=== PATIENT | female | born 1990 | race African-American/Black ===

== ENCOUNTER 2018-04-09 22:50 | Emergency (ER) | payer BC ==
[~2018-04-09] VITALS: Ht 165.1 cm; Wt 73.9 kg
[2018-04-09 22:58] VITALS: BP 97/58
[2018-04-10 00:19] LABS: BASOPHILS % (AUTO) 0.6 % (0.0-2.0); HEMATOCRIT 31.5 % (37.0-47.0); HEMOGLOBIN 9.6 G/DL (12.0-16.0); MEAN CORPUSCULAR VOLUME 68 FL (80-99); MONOCYTES % (AUTO) 3.9 % (1.0-10.0); NEUTROPHILS % (AUTO) 76.5 % (45.0-75.0); PLATELET COUNT 398 K/UL (150-450); RED BLOOD COUNT 4.61 M/UL (4.20-5.40); RED CELL DISTRIBUTION WIDTH 17.8 % (11.6-14.8)
[2018-04-10 00:35] LABS: ANION GAP 9 mmol/L (5-15); BLOOD UREA NITROGEN 8 mg/dL (7-18); CALCIUM 8.5 MG/DL (8.5-10.1); CARBON DIOXIDE 21 MMOL/L (21-32); CHLORIDE 104 MMOL/L (98-107); CREATININE 0.7 MG/DL (0.55-1.30); POTASSIUM 3.8 MMOL/L (3.5-5.1); SODIUM 134 MMOL/L (136-145)
[2018-04-10 00:39] LABS: ALANINE AMINOTRANSFERASE 20 U/L (12-78); ALBUMIN 3.2 G/DL (3.4-5.0); ALBUMIN/GLOBULIN RATIO 0.6 (1.0-2.7); ALKALINE PHOSPHATASE 80 U/L (46-116); ASPARTATE AMINO TRANSFERASE 13 U/L (15-37); BILIRUBIN,TOTAL 0.3 MG/DL (0.2-1.0)
--- NOTE | 2018-04-10 00:39 | Emergency Room Report ---
History of Present Illness General Chief Complaint: Abdominal Pain Source: Patient, EMS Present Illness HPI 27-year-old female presents ED for evaluation of abdominal pain. Patient brought in by EMS. States the pain started around 7 PM tonight. Epigastric, sharp, 8 out of 10, nonradiating. Notes multiple episodes of nausea and vomiting. States she is approximately 3 months . Denies any vaginal bleeding or discharge. States that there've been no palpitations with this . States that she has one prior which was uncomplicated. Denies chest pain or shortness of breath. Denies fevers chills. No other aggravating relieving factors. Denies any other associated symptoms Allergies: Coded Allergies: No Known Allergies (Unverified , 04/09/18) Patient History Past Medical History: none Past Surgical History: none Pertinent Family History: none Social History: Denies: smoking, alcohol use, drug use Last Menstrual Period: n/a Now: Yes - 3 months : 2 Para: 1 Immunizations: UTD Reviewed Nursing Documentation: PMH: Agreed; PSxH: Agreed Nursing Documentation-PMH Past Medical History: No Stated History Review of Systems All Other Systems: negative except mentioned in HPI Physical Exam Vital Signs Date Time Temp Pulse Resp B/P (MAP) Pulse Ox O2 Delivery O2 Flow Rate FiO2 04/09/18 22:50 97.6 76 16 136/72 99 Room Air 97.5 Sp02 EP Interpretation: reviewed, normal General Appearance: no apparent distress, alert, GCS 15, non-toxic Head: normocephalic, atraumatic Eyes: bilateral eye normal inspection, bilateral eye PERRL ENT: hearing grossly normal, normal pharynx, no angioedema, normal voice Neck: full range of motion, supple/symm/no masses Respiratory: chest non-tender, lungs clear, normal breath sounds, speaking full sentences Cardiovascular #1: regular rate, rhythm, no edema Cardiovascular #2: 2+ carotid (R), 2+ carotid (L), 2+ radial (R), 2+ radial (L) , 2+ dorsalis pedis (R), 2+ dorsalis pedis (L) Gastrointestinal: normal bowel sounds, soft, no guarding, no rebound, tenderness - epigastric, other - gravid uterus Rectal: deferred Genitourinary: normal inspection, no CVA tenderness Musculoskeletal: back normal, gait/station normal, normal range of motion, non- tender Neurologic: alert, oriented x3, responsive, motor strength/tone normal, sensory intact, speech normal Psychiatric: judgement/insight normal, memory normal, mood/affect normal, no suicidal/homicidal ideation Reflexes: 3+ bicep (R), 3+ bicep (L), 3+ tricep (R), 3+ tricep (L), 3+ knee (R) , 3+ knee (L) Skin: normal color, no rash, warm/dry, well hydrated Lymphatic: no adenopathy Medical Decision Making Diagnostic Impression: Primary Impression: Gastritis Qualified Codes: K29.00 - Acute gastritis without bleeding Additional Impression: and not yet delivered in first trimester ER Course Hospital Course 27-year-old female presents to ED complaining of abdominal pain with N/V. Differential diagnoses include: gastrits, gastroenterits, ectopic , ovarian torsion/cyst, UTI Clinical course Patient placed on stretcher in ED. After initial history and physical I ordered labs, IV fluids, pepcid, zofran and OB/ABD US Labs-no leukocytosis, electrolytes okay, LFTs okay beta hCG greater than 80,000 Abdominal ultrasoundno gallbladder abnormality OB ultrasoundIUP 12 weeks with heart rate Upon reassessment patient states she feels better. Discussed findings with patient. I also spoke to her SHOE STAINER over the phone. She agrees the patient can be safely discharged to home with close patient follow-up Diagnosis - gastritis, Stable and discharged to home with Rx zofran, zantac. Followup with PMD/OB/ [facility]. Return to ED if symptoms recur or worsen Labs Test 04/10/18 00:00 White Blood Count 9.0 K/UL (4.8-10.8) Red Blood Count 4.61 M/UL (4.20-5.40) Hemoglobin 9.6 G/DL (12.0-16.0) Hematocrit 31.5 % (37.0-47.0) Mean Corpuscular Volume 68 FL (80-99) Mean Corpuscular Hemoglobin 20.8 PG (27.0-31.0) Mean Corpuscular Hemoglobin Concent 30.5 G/DL (32.0-36.0) Red Cell Distribution Width 17.8 % (11.6-14.8) Platelet Count 398 K/UL (150-450) Mean Platelet Volume 6.2 FL (6.5-10.1) Neutrophils (%) (Auto) 76.5 % (45.0-75.0) Lymphocytes (%) (Auto) 18.0 % (20.0-45.0) Monocytes (%) (Auto) 3.9 % (1.0-10.0) Eosinophils (%) (Auto) 1.0 % (0.0-3.0) Basophils (%) (Auto) 0.6 % (0.0-2.0) Sodium Level 134 MMOL/L (136-145) Potassium Level 3.8 MMOL/L (3.5-5.1) Chloride Level 104 MMOL/L (98-107) Carbon Dioxide Level 21 MMOL/L (21-32) Anion Gap 9 mmol/L (5-15) Blood Urea Nitrogen 8 mg/dL (7-18) Creatinine 0.7 MG/DL (0.55-1.30) Estimat Glomerular Filtration Rate > 60 mL/min (>60) Glucose Level 101 MG/DL (74-106) Calcium Level 8.5 MG/DL (8.5-10.1) Total Bilirubin 0.3 MG/DL (0.2-1.0) Aspartate Amino Transf (AST/SGOT) 13 U/L (15-37) Alanine Aminotransferase (ALT/SGPT) 20 U/L (12-78) Alkaline Phosphatase 80 U/L (46-116) Total Protein 8.2 G/DL (6.4-8.2) Albumin 3.2 G/DL (3.4-5.0) Globulin 5.0 g/dL Albumin/Globulin Ratio 0.6 (1.0-2.7) Lipase 80 U/L (73-393) Human Chorionic Gonadotropin, Quant 75994 mIU/mL (1-6) CT/MRI/US Diagnostic Results CT/MRI/US Diagnostic Results #1: Imaging Test Ordered: OB US Impression single IUP 12 weeks. FHR +180 beats. trace free fluid in endocervical canal CT/MRI/US Diagnostic Results #2: Imaging Test Ordered: ABD US Impression no gallstones, no gallbladder wall thickening. no pericholecystic fluid. no CBD dilatation Last Vital Signs Date Time Temp Pulse Resp B/P (MAP) Pulse Ox O2 Delivery O2 Flow Rate FiO2 04/09/18 22:58 98.1 85 16 97/58 96 Room Air 98.1 Status: improved Disposition: HOME, SELF-CARE Condition: Stable Scripts Ondansetron Odt* (ZOFRAN ODT*) 4 Mg Tab.rapdis 4 MG BC EVERY 6 HOURS PRN for Nausea & Vomiting, #20 TAB 0 Refills Prov: Alejandro Maynard MD 04/10/18 Ranitidine Hcl* (ZANTAC*) 150 Mg Tablet 150 MG ORAL TWICE A DAY, #30 TAB Prov: Alejandro Maynard MD 04/10/18 Referrals: NON PHYSICIAN (PCP) Alejandro Maynard MD Apr 10, 2018 00:39
[2018-04-10] MEDS ORDERED: RANITIDINE HCL150 MG ORAL (01:26)
[2018-04-10] MEDS ORDERED: ONDANSETRON ODT4 MG BC (01:26)
[2018-04-10 01:31] VITALS: BP 107/64
--- NOTE | 2018-04-10 11:19 | Diagnostic Imaging Report ---
Indication: Right upper quadrant abdominal pain Technique: Guthrie-scale and duplex images of the upper abdomen were obtained. Doppler interrogation of the hepatic vessels Comparison: none Findings: Gallbladder is unremarkable, without stones, wall thickening, nor pericholecystic fluid. Sonographic Rangel's sign is negative. Common bile duct measures 3 mm in diameter. No intrahepatic biliary ductal dilatation. Liver demonstrates normal echogenicity, no focal abnormality. Portal vein and hepatic veins are patent on Doppler imaging. Pancreas is unremarkable. Spleen is unremarkable. Left kidney measures 11.4 cm in length. Right kidney measures 10 cm length. Both kidneys demonstrate normal echogenicity. There is no hydronephrosis. No focal abnormality . Non-aneurysmal abdominal aorta . Impression: Negative
--- NOTE | 2018-04-10 11:25 | Diagnostic Imaging Report ---
Indication: Abdominal pain, patient, right upper quadrant pain Technique: Transabdominal and transvaginal images. Doppler interrogation of the ovaries Comparison: none Findings: Exam is limited due to patient discomfort. Uterus measures 11.6 cm length by 7.9 cm AP. There is a single live intrauterine . The placenta is high fundal, posterior, clears the internal cervical os. There is positive heart activity, heart rate 180 bpm. The cervix is closed. No evidence of subchorionic hemorrhage or placental abruption demonstrated. measurements as follows: [place]-rump length 49 mm, 11 weeks 5 days; biparietal diameter 15.2 mm, 12 weeks one day; head circumference 58 mm, 12 weeks one day; abdominal circumference 51 mm, 12 weeks zero days; femur length 7 mm, 12 weeks one day. Estimated gestational age by average of ultrasound measurements is 12 weeks zero days. Estimated date of delivery 10/22/2018. Estimated gestational age by dates of 11 weeks 5 days Assessment of anatomy not performed due to very early stage of , emergent nature of the exam, and patient discomfort. The right ovary cannot be visualized. The left ovary measures 5.1 cm in length. It demonstrates normal arterial and venous Doppler flow Impression: Limited exam, as described 12 week single live intrauterine . No unusual features
== END 2018-04-10 01:32 | disposition home or self-care (01) ==
LOC: EDBD 22:50 → EMR 23:09
DX: O99.611 Diseases of the digestive system complicating pregnancy, first trimester (principal); K92.89 Other specified diseases of the digestive system; Z3A.12 12 weeks gestation of pregnancy; K29.70 Gastritis, unspecified, without bleeding
CPT/HCPCS: 36415; 76700; 76801; 76830; 80053; 83690; 84702; 85025; 96361; 96374; 96375; 99284; J2405; S0028